=== PATIENT | female | born 1980 | race Caucasian/White ===

== ENCOUNTER 2017-09-15 16:16 | Observation (INO) | payer SELFPAY ==
[2017-09-15] MEDS ORDERED: ONDANSETRON 4 MG/2 ML VIAL ONE ×2 (17:20→23:27)
[2017-09-15] MEDS ORDERED: LIDOCAINE 2% VISCOUS 15 ML UDCUP ONE (17:48)
[2017-09-15] MEDS ORDERED: MAG HYDROX/AL HYDROX/SIMETH 30 ML UDCUP ONE (17:48)
[2017-09-15] MEDS ORDERED: HYOSCYAMINE SULFATE 0.125 MG TAB ONE (17:49)
[2017-09-15] MEDS ORDERED: ceFAZolin 2 GM/DEXTROSE 100 ML IV ONE (22:30)
--- NOTE | 2017-09-15 22:32 | EDV ---
[f rep st] EMERGENCY DEPARTMENT REPORT Patient had an IV placed. She was given 1 L of saline. She was given Zofran for nausea, morphine for pain. Laboratories show normal CBC, normal chemistry. Her lipase and LFTs are normal. HCG is negative. Ultrasound shows positive Negro sign, cholelithiasis, and suspicion for cholecystitis. HOSPITAL COURSE: Re-evaluation at 6:50 p.m. Patient is better. The patient and I discussed imaging and lab results. We discussed treatment plan, including recommendation for surgical consult. She expresses understanding and agreement. I consulted and discussed the case with Dr. Cummings, who saw the patient in the emergency department. She agrees with concern for cholecystitis , and the patient will be admitted for surgery tonight. MEDICAL DECISION MAKING: I considered peptic ulcer disease, cholelithiasis, cholecystitis. CLINICAL IMPRESSION: Cholecystitis. PLAN: Admission and surgery. /[id number]/MODL MTDD
--- NOTE | 2017-09-15 22:32 | EDV ---
[f rep st] EMERGENCY DEPARTMENT REPORT DATE OF SERVICE: 09/15/2017 CHIEF COMPLAINT: Abdominal pain. HISTORY OF PRESENT ILLNESS: The patient has right upper quadrant and epigastric abdominal pain since last night. She has had vomiting. Her symptoms are worse with eating. The pain goes through to her back. No similar symptoms previously. No chest discomfort or trouble breathing. No urinary symptoms. Pain is in the right upper quadrant and again worse with eating and worse with pushing on. No previous abdominal surgery. Mother and sisters had gallbladder problems. PAST MEDICAL HISTORY: Negative. The patient is healthy. SOCIAL HISTORY: . Nonsmoker. No alcohol. ALLERGIES: None. ADULT PHYSICAL EXAMINATION: GENERAL: Alert, pleasant, well-developed female, moderate distress. VITAL SIGNS: Stable. HEENT: Normal. NECK: Supple. HEART: Regular rate and rhythm without murmur or gallop. LUNGS: Clear. ABDOMEN: Soft with tenderness in the epigastrium and right upper quadrant. Normal bowel sounds. No masses. EXTREMITIES: Exam is normal. MUSCULOSKELETAL : Exam is normal. NEUROPSYCH: Exam is normal. EMERGENCY DEPARTMENT COURSE: Patient had an IV placed. She was given 1 L of saline. She was given Zofran for nausea, morphine for pain. Laboratories show normal CBC, normal chemistry. Her lipase and LFTs are normal. HCG is negative. Ultrasound shows positive Negro sign, cholelithiasis, and suspicion for cholecystitis. HOSPITAL COURSE: Re-evaluation at 6:50 p.m. Patient is better. The patient and I discussed imaging and lab results. We discussed treatment plan, including recommendation for surgical consult. She expresses understanding and agreement. I consulted and discussed the case with Dr. Cummings, who saw the patient in the emergency department. She agrees with concern for cholecystitis , and the patient will be admitted for surgery tonight. MEDICAL DECISION MAKING: I considered peptic ulcer disease, cholelithiasis, cholecystitis. CLINICAL IMPRESSION: Cholecystitis. PLAN: Admission and surgery. /[id number]/MODL and [id number]/MODL [facility]
--- NOTE | 2017-09-15 22:57 | GHP ---
[f rep st] HISTORY AND PHYSICAL DATE OF SERVICE: 09/15/2017 CHIEF COMPLAINT: Right upper quadrant pain. HISTORY OF PRESENT ILLNESS: This is a 37-year-old, bilingual (Azerbaijani and Nigerien) female, who presented to the emergency room several hours ago with complaints of right upper quadrant pain, nausea and vomiting. Patient states that last night, around 5 or 6 p.m., she ate a fatty meal and then developed right upper quadrant pain along with nausea and 3 episodes of vomiting. She tried to eat 2 light snacks but failed to keep them down. She denies fever. Has some slight chills. Denies chest pain, weight loss, bowel problems, or other symptoms at this time. She does have history of renal colic pain in the past, but has never had any intervention done. The patient rates the pain an average of 8/10, described as sharp and achy in the right upper quadrant and mid epigastric region. Pain does radiate to her back. She denies any lower quadrant pain. An ultrasound done in the emergency room showed cholelithiasis. CBC showed white blood count of 12.2. LFTs and lipase within normal limits. Negative test. The patient was given fluids as well as Zofran for the nausea. The HPI was conducted with the help of a waste water treatment plant operator. PAST MEDICAL HISTORY: Includes GERD. PAST SURGICAL HISTORY: Tubal ligation. FAMILY HISTORY: Noncontributory. SOCIAL HISTORY: Nonsmoker. Denies alcohol use. Denies illicit drug use. 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 Participates in [employer]. REVIEW OF SYSTEMS: Review of systems: 10 point review of systems negative except for HPI PHYSICAL EXAM: GENERAL: Pleasant, well-groomed, well-nourished female. Lying down in the bed, teary eyed due to the pain. Obese body habitus. Present with her and daughter at bedside, in mild distress. HEENT: Normocephalic, atraumatic. No gross hearing deficits. Pupils equal and round. No scleral icterus. Moist mucous membranes. RESPIRATORY: Lungs are clear to auscultation bilaterally without wheezes, rhonchi, or rales. CARDIOVASCULAR: Regular rate and rhythm. No peripheral edema. ABDOMEN: Soft. Equivocal Negro's sign. Pain to palpation over right upper quadrant as well as mid epigastric. Negative McBurney's. Negative Rovsing's. No hepatosplenomegaly. Bowel sounds are present. No surgical scars. EXTREMITIES: No peripheral edema. Pulses are intact. NEURO: Alert and oriented. PSYCH: Appropriate mood and affect. Skin: Warm and dry RESULTS REVIEWED: I personally reviewed her ultrasound on PACS and her labs printed on downtime. ASSESSMENT AND PLAN: This is a 37-year-old female who presents here with right upper quadrant pain. Ultrasound shows cholelithiasis. The risks and benefits of cholecystectomy were discussed with the patient. Given her severe pain, she would like to proceed with the procedure today. The risks include but are not limited to bleeding, infection, damage to the common bile duct, and damage to nearby organs were explained to the patient. All questions were answered to the patient's satisfaction. Will admit patient overnight for observation. /[id number]/MODL MTDD
[2017-09-15] MEDS ORDERED: BUPIVACAINE/EPI 0.5% 30 ML SDV ONE (23:10)
[2017-09-15] MEDS ORDERED: fentaNYL 100 MCG/2 ML INJ ONE (23:23)
[2017-09-15] MEDS ORDERED: REMIFENTANIL HCL 1 MG VIAL ONE (23:23)
[2017-09-15] MEDS ORDERED: PROPOFOL/EMULSION 500 MG/50 ML BOTTLE IV ONE (23:23)
[2017-09-15] MEDS ORDERED: LIDOCAINE 2% 5 ML SDV ONE (23:27)
[2017-09-15] MEDS ORDERED: DEXAMETHASONE 4 MG/ML VIAL ONE (23:27)
[2017-09-15] MEDS ORDERED: ROCURONIUM 100 MG/10 ML VIAL ONE (23:29)
[2017-09-16] MEDS ORDERED: HYDROCODONE/APAP 5/325 TAB PO PRN ×2 (01:16→01:22)
[2017-09-16] MEDS ORDERED: ONDANSETRON 4 MG/2 ML VIAL IVP PRN (01:16)
[2017-09-16] MEDS ORDERED: PHENYLEPHRINE HCL 100 MCG/ML SYR IVP PRN (01:16)
[2017-09-16] MEDS ORDERED: ACETAMINOPHEN 500 MG TAB PO PRN (01:16)
[2017-09-16] MEDS ORDERED: NALOXONE HCL 0.4 MG/ML INJ IVP PRN (01:16)
[2017-09-16] MEDS ORDERED: oxyCODONE IR 5 MG TAB PO PRN (01:16)
[2017-09-16] MEDS ORDERED: PROMETHAZINE HCL 25 MG/ML INJ IVP PRN (01:16)
[2017-09-16] MEDS ORDERED: LR 500 ML IV PRN (01:16)
[2017-09-16] MEDS ORDERED: fentaNYL 100 MCG/2 ML INJ IVP PRN (01:16)
[2017-09-16] MEDS ORDERED: ONDANSETRON DISINTEGRATING 4 MG TAB PO PRN (01:21)
[2017-09-16] MEDS ORDERED: KETOROLAC 15 MG/1 ML SDV IVP PRN (01:22)
--- NOTE | 2017-09-16 02:33 | GOP ---
[f rep st] OPERATIVE REPORT DATE OF OPERATION: 09/16/2017 SURGEON: Shauna Cummings MD ANESTHESIA: General. ANESTHESIOLOGIST: Marianne Saenz DO. PREOPERATIVE DIAGNOSIS: Cholelithiasis. POSTOPERATIVE DIAGNOSIS: Cholelithiasis. PROCEDURE PERFORMED: Laparoscopic cholecystectomy. FINDINGS: Multiple gallstones, enlarged gallbladder. SPECIMENS: Gallbladder. ESTIMATED BLOOD LOSS: 10 cc. INDICATIONS: The patient is a 37-year-old woman, who has had right upper quadrant pain. Her LFTs were normal; however, her ultrasound was suggestive of early cholecystitis with cholelithiasis. Her pain was not controlled and so we took her to the operating room. DESCRIPTION OF PROCEDURE: Patient was brought into the operating room, placed supine on the table, and general anesthesia was administered. Her abdomen was prepped and draped in the usual sterile fashion. I infiltrated all sites with 0.5% Marcaine prior to making incisions. I elevated her umbilicus. I made a small casa. I inserted the Veress needle. It passed the hanging drop test. Her abdomen insufflated easily to a pressure of 15 mmHg. I placed the 5 mm camera with a trocar at this site. There were no injuries from Veress needle placement. Under direct vision, I placed a 10 mm subxiphoid trocar and two 5 mm trocars along the right costal margin. Her gallbladder was extremely tense and elongated. I left it cephalad and laterally to expose the triangle Calot. I performed dissection to skeletonize the cystic artery and the cystic duct. The cystic duct was extremely short before came within the junction of the common bile duct. The cystic artery was quite small. The cystic artery was clipped towards the gallbladder and transected. The cystic duct was singly clipped towards the gallbladder, doubly clipped distally, and transected with scissors. The gallbladder was removed from the gallbladder fossa with electrocautery. It was placed in an EndoCatch bag and retrieved via the 10 mm trocar site. This incision had to be enlarged considerably in order to accommodate the numerous gallstones. Upon extracting the gallbladder, the bag had a breach and the gallbladder was then removed with the stones. Hemostasis was achieved on the liver bed. Clips were in satisfactory position. The ports were removed under direct vision. The abdomen allowed to desufflate.The 10 mm trocar site was closed with 0 PDS. The wound was irrigated. All skin closed with 4-0 Monocryl. Dermabond applied. She was awakened in the operating room, extubated, transferred to PACU in stable condition. /[id number]/MODL MTDD
[2017-09-16 06:06] LABS: PLATELET COUNT 341 10^3/uL (150-400)
[2017-09-16 07:41] VITALS: BP 93/63
[2017-09-16] MEDS ORDERED: FAMOTIDINE 20 MG TAB PO SCH (09:00)
--- NOTE | 2017-09-16 11:29 | SOAPPROG ---
SOAP Progress Note Assessment/Plan: Assessment: POD#1 s/p laparoscopic cholecystectomy Neuro: pain meds prn Respiratory: No active issues Cardio: Monitor for hemodynamic instability DVT prophylaxis: SCD's Dispo: Discharge today on abx and pain medication prn - total of 5 days abx S: no nausea/vomiting, ate breakfast and kept it down, walking to bathroom, mild pain O: laying in bed CTAB Regular rate and rhythm SCD's on Abdomen: soft, no tenderness throughout with light palpation, BS present, incisions dry, clean, and intact Extremities: no swelling, pulses intact 09/16/17 11:29 09/16/17 14:07 Objective: Vital Signs Temp Pulse Resp BP Pulse Ox 36.4 C 65 16 93/63 L 95 09/16/17 07:39 09/16/17 07:39 09/16/17 07:39 09/16/17 07:39 09/16/17 07:39 Laboratory Results 09/16/17 05:37 09/15/17 09/16/17 09/17/17 05:59 05:59 05:59 Output Total 175 325 Balance -175 -325 ICD10 Worksheet Patient Problems: Problems Problem Status Onset Acute calculous cholecystitis Acute
--- NOTE | 2017-09-16 12:10 | GDS ---
[f rep st] DISCHARGE SUMMARY ADMITTING DIAGNOSIS: Cholelithiasis. SECONDARY DIAGNOSIS: Gastroesophageal reflux disease. REASON FOR ADMISSION: This is a very pleasant 37-year-old [place]er-speaking female, who presented to the emergency room on 09/15/2017 for right upper quadrant pain. Ultrasound done showed cholelithiasis. She was admitted for surgical intervention, pain control, and close observation. HOSPITAL COURSE: The patient was taken to surgery on 09/15/2017 by myself, Shauna Emiliano, for a laparoscopic cholecystectomy. The operation was unremarkable aside from the fact that the cystic duct was very short. Upon extracting the gallbladder, the bag had a breach and the gallbladder was then removed with the stones. The patient was taken back in the PACU in stable condition. CONDITION: The patient will be discharged home today in stable condition. DISCHARGE MEDICATIONS: [place] 5/325 mg 1-2 tablets every 6 hours as needed for pain, Levaquin 500 mg p.o. daily for 4 days. Please refer to the EMR for further details on other home medications. DISCHARGE INSTRUCTIONS: The patient was instructed to not drive while in pain or taking pain prescription medications. She is able to take [id number] ibuprofen or Tylenol as needed. She can continue normal activity aside from no heavy lifting, pushing, or pulling greater than 15 pounds for the next 2 weeks. Incisional care: She is able to shower and no dressing is needed over the incisions. No hot tub, baths, or swimming pools for 2 weeks. She will make a followup appointment in our office in 10-14 days. She will call the office if she develops fevers, chills, worsening pain, difficulty with urination, redness or purulent drainage around the incisions. All questions were answered to the patient's satisfaction. /[id number]/MODL MTDD
[2017-09-17 10:00] LABS: PLATELET COUNT 374 10^3/uL (150-400)
== END 2017-09-16 13:30 | disposition home or self-care (01) ==
LOC: FOB 20:52 → F3E 20:52
PROVIDERS: ADMIT Surgery; ATTEND Surgery
PROC: 0FT44ZZ Resection of Gallbladder, Percutaneous Endoscopic Approach (ICD-10-PCS; principal; 2017-09-15 11:30)
DX: K80.20 Calculus of gallbladder without cholecystitis without obstruction (principal); K21.9 Gastro-esophageal reflux disease without esophagitis
CPT/HCPCS: 96374; J0690; J1100; J1885; J2270; J2405; J2704; J3010

== ENCOUNTER 2017-09-17 05:51 | Inpatient (IN) | payer OTHER ==
[2017-09-17] MEDS ORDERED: NS 1,000 ML IV ONE (06:05)
[2017-09-17] MEDS ORDERED: HYDROmorphONE/DILAUDID 2 MG/ML INJ IVP ONE ×3 (06:05→14:31)
[2017-09-17] MEDS ORDERED: PROMETHAZINE HCL 25 MG/ML INJ IVP ONE (06:06)
[2017-09-17] MEDS ORDERED: HYDROmorphONE/DILAUDID 1 MG/ML INJ ONE ×4 (06:21→14:33)
[2017-09-17 06:42] LABS: PLATELET COUNT 289 10^3/uL (150-400)
[2017-09-17 06:50] LABS: INR 1.03 (0.83-1.16); PROTIME(PATIENT) 13.7 SEC (12.0-15.0)
--- NOTE | 2017-09-17 07:02 | EDPHY ---
H & P Time Seen by Provider: 09/17/17 06:54 HPI/ROS: HPI Abdominal pain, just had gallbladder taken out. 37-year-old female by private vehicle with family. This patient had a laparoscopic cholecystectomy by Dr. Shauna Cummings yesterday. This morning she reports that she coughed and then retched felt a sudden pop in her right upper quadrant and then associated sharp stabbing pain to the right upper quadrant. No vomiting. Last bowel movement was yesterday. No bloody or melenic stool. Last meal was last night. ROS: Constitutional: No fever, no chills. No weakness. Eyes: No discharge. No changes in vision. ENT: No sore throat. No nasal congestion or rhinorrhea. Respiratory: No cough. No shortness of breath. Cardiac: No chest pain, no palpitations. Gastrointestinal: As above, no vomiting, no diarrhea. Genitourinary: No hematuria. No dysuria or increased frequency with urination. Musculoskeletal: No back pain. No neck pain. No myalgias or arthralgias. Skin: No rashes. Neurological: No headache. No focal weakness or altered sensation. Past medical history: Cholecystectomy. Social history: Here with family. Nonsmoker. No alcohol. Physical Exam: General Appearance: Alert, she appears uncomfortable but not in distress. This patient is responding to questions appropriately and in full sentences. This patient appears well-hydrated and well-nourished. Eyes: Pupils equal and round no pallor or injection. No lid edema, erythema or injection. Respiratory: There are no retractions, lungs are clear to auscultation with good air movement bilaterally. Cardiovascular: Regular rate and rhythm. No murmur. Gastrointestinal: Gross inspection of the abdomen reveals well-healing surgical incision that are clean dry and intact. No evidence of infection. Abdomen is soft with right upper quadrant and epigastric tenderness on palpation , no masses, bowel sounds normal. No focal tenderness at McBurney's point. No Negro sign. Neurological: Motor sensory function is grossly intact. Cranial nerves are normal. Gait is normal. Skin: Warm and dry, no rashes. Musculoskeletal: Neck is supple and nontender. Extremities are symmetrical. All joints range without pain or impingement. Psychiatric: No agitation. No depression. Database: EKG: Imaging: Right upper quadrant ultrasound: Trace amount of free fluid. But really an inconclusive study. Secondary to patient not being able to tolerate the pain from the probe on her right upper quadrant of her abdomen. Results were discussed with staff radiologist Sebastián Johnson. CT recommended for further evaluation. CT scan of abdomen and pelvis with IV contrast: Pneumo peritonitis which she would expect 1 day out from pseudo aneurysm, bilateral atelectasis at the lung bases, the bile duct appears normal. There is some free fluid associated with gallbladder fossa which tracks down the valery colic gutter inferiorly. Possibly a biliary leak. Consider HIDA scan. Results were discussed with staff radiologist Dr. Gus Chairez. HIDA scan: Positive for biliary leak, leakage noted extending up to the left upper quadrant. Results were discussed with staff radiologist Dr. Vega Funk. Procedures: Emergency department course: Vital signs reviewed. IV was placed. She was started on IV normal saline with 500 cc to 1 L to be given over the next hour. She was initially given 6.25 mg of IV Phenergan for nausea and 1 mg of IV hydromorphone for pain. Right upper quadrant ultrasound to be obtained. 8:40 a.m., waiting on ultrasound results. Patient complaining of pain. She will be given another 0.5 mg of IV hydromorphone. 9:15 a.m., CT scan of abdomen and pelvis with IV contrast ordered. Patient consents. 10:30 a.m., patient's pain is currently well controlled. Results of CT imaging and blood work discussed with her and family. Need for probable HIDA scan discussed. They consent. 10:40 a.m., spoke with Shauna Cummings the patient's surgeon. Case discussed in detail with her. She would like a HIDA scan obtained and then discuss further management. 2:30 p.m., patient has returned from HIDA scan. Results of HIDA scan discussed with her. Her pain is coming back. She was given another 0.5 mg of IV hydromorphone. Dr. Shauna Cummings paged. 2:45 p.m., spoke with Dr. Shauna Cummings. Results of HIDA scan discussed. Dr. Shauna Cummings will admit this patient arrange for ERCP. The patient's remaining emergency department course under my care has been uneventful. The patient was admitted in stable condition. Differential Diagnosis: The differential diagnosis on this patient includes but is not limited to postsurgical dehiscence. Intra-abdominal bleeding, pancreatitis, bowel obstruction unlikely. This represents a partial list of diagnoses considered. These considerations are based on history, physical exam, past history, reassessment and diagnostic testing. Smoking Status: Never smoked Constitutional: Initial Vital Signs Temperature (C) 36.8 C 09/17/17 05:55 Heart Rate 60 09/17/17 05:55 Respiratory Rate 18 09/17/17 05:55 Blood Pressure 97/66 L 09/17/17 05:55 O2 Sat (%) 94 09/17/17 05:55 O2 Delivery Mode Room Air Allergies/Adverse Reactions: No Known Allergies Allergy (Unverified 09/15/17 21:08) Home Medications: Medication Instructions Recorded Hydrocodone/APAP 5/325 [[place] 1 - 2 tab PO Q4H PRN #20 tab 09/16/17 5/325 (*)] Ibuprofen [Motrin (*)] 200 mg PO DAILY PRN 09/16/17 levOFLOXACIN [levAQUIN (*)] 500 mg PO DAILY10 #4 tab 09/16/17 Medical Decision Making - Diagnostics Imaging Results: Imaging Impressions Abdomen Ultrasound 09/17/17 06:58 Impression: Technically very limited examination in a patient who is one day postop cholecystectomy. As clinically directed, CT scan may be of value in further assessment. Results called and discussed with Christiano Carolina MD on 09/17/2017 at 9:[address] 09/17/17 09:06 Impression: 1. Postoperative features following yesterday's cholecystectomy, with some fluid in the gallbladder fossa and extending caudal to the right hepatic lobe and along the right paracolic gutter, which could be seromatous although a bile leak cannot be excluded. If there is further clinical concern, a nuclear medicine HIDA scan could be considered. 2. Small-volume pneumoperitoneum, likely postoperative in etiology. 3. Bibasilar infiltrates, with trace pleural effusions. 4. Mild hepatomegaly, and low-grade hepatic steatosis. Findings were discussed with Christiano Carolina MD at 10:05, on 09/17/2017. Hepatobiliary Scan Nuclear Medicine 09/17/17 13:00 Impression: 1. Bile leak with activity noted in the left upper quadrant of the abdomen. 2. No biliary obstruction. However no activity noted in the small bowel. Findings and recommendations discussed with Emergency Department physician, Christiano Carolina MD at 14:25 hour, 09/17/2017. Final report concurs with initial preliminary interpretation. - Data Points Laboratory Results: Laboratory Results 09/17/17 06:17 18 06:17 09/17/17 09/17/17 09/17/17 08:07 06:17 06:17 WBC RBC Hgb Hct MCV MCH MCHC RDW Plt Count MPV Neut % (Auto) Lymph % (Auto) [place] % (Auto) Eos % (Auto) Baso % (Auto) Nucleat RBC Rel Count Absolute Neuts (auto) Absolute Lymphs (auto) Absolute Monos (auto) Absolute Eos (auto) Absolute Basos (auto) Absolute Nucleated RBC Immature Gran % Immature Gran # PT INR APTT Sodium 141 mEq/L mEq/L (135-145) Potassium 4.1 mEq/L mEq/L (3.3-5.0) Chloride 105 mEq/L mEq/L (97-110) Carbon Dioxide 25 mEq/l mEq/l (22-31) Anion Gap 11 mEq/L mEq/L (8-16) BUN 13 mg/dL mg/dL (7-23) Creatinine 0.7 mg/dL mg/dL (0.6-1.0) Estimated GFR > 60 Glucose 121 mg/dL H mg/dL (70-100) Calcium 8.1 mg/dL L mg/dL (8.5-10.4) Total Bilirubin 0.3 mg/dL mg/dL (0.1-1.4) Conjugated Bilirubin 0.3 mg/dL mg/dL (0.0-0.5) Unconjugated Bilirubin 0.0 mg/dL mg/dL (0.0-1.1) AST 55 IU/L H IU/L (14-46) ALT 76 IU/L H IU/L (9-52) Alkaline Phosphatase 48 IU/L IU/L (38-126) Total Protein 6.2 g/dL L g/dL (6.3-8.2) Albumin 3.5 g/dL g/dL (3.5-5.0) Lipase 58 IU/L IU/L (23-300) Beta HCG, Qual NEGATIVE Urine Color YELLOW Urine Appearance MODERATELY TURBID Urine pH 5.0 (5.0-7.5) Ur Specific [place] 1.019 (1.002-1.030) Urine Protein NEGATIVE (NEGATIVE) Urine Ketones NEGATIVE (NEGATIVE) Urine Blood NEGATIVE (NEGATIVE) Urine Nitrate NEGATIVE (NEGATIVE) Urine Bilirubin NEGATIVE (NEGATIVE) Urine Urobilinogen NEGATIVE EU EU (0.2-1.0) Ur Leukocyte Esterase TRACE H (NEGATIVE) Urine RBC 1-3 /hpf /hpf (0-3) Urine WBC 10-15 /hpf H /hpf (0-3) Ur Epithelial Cells 2+ /lpf H /lpf (NONE-1+) Hyaline Casts 1-5 /lpf /lpf (0-1) Urine Mucus 3+ /lpf H /lpf (NONE-1+) Urine Glucose NEGATIVE (NEGATIVE) 09/17/17 09/17/17 06:17 06:10 WBC 9.62 10^3/uL H 10^3/uL (3.80-9.50) RBC 3.66 10^6/uL L 10^6/uL (4.18-5.33) Hgb 11.2 g/dL L g/dL (12.6-16.3) Hct 33.9 % L % (38.0-47.0) MCV 92.6 fL fL (81.5-99.8) MCH 30.6 pg pg (27.9-34.1) MCHC 33.0 g/dL g/dL (32.4-36.7) RDW 12.8 % % (11.5-15.2) Plt Count 289 10^3/uL 10^3/uL (150-400) MPV 9.8 fL fL (8.7-11.7) Neut % (Auto) 69.2 % % (39.3-74.2) Lymph % (Auto) 24.7 % % (15.0-45.0) [place] % (Auto) 5.2 % % (4.5-13.0) Eos % (Auto) 0.2 % L % (0.6-7.6) Baso % (Auto) 0.4 % % (0.3-1.7) Nucleat RBC Rel Count 0.0 % % (0.0-0.2) Absolute Neuts (auto) 6.65 10^3/uL H 10^3/uL (1.70-6.50) Absolute Lymphs (auto) 2.38 10^3/uL 10^3/uL (1.00-3.00) Absolute Monos (auto) 0.50 10^3/uL 10^3/uL (0.30-0.80) Absolute Eos (auto) 0.02 10^3/uL L 10^3/uL (0.03-0.40) Absolute Basos (auto) 0.04 10^3/uL 10^3/uL (0.02-0.10) Absolute Nucleated RBC 0.00 10^3/uL 10^3/uL (0-0.01) Immature Gran % 0.3 % % (0.0-1.1) Immature Gran # 0.03 10^3/uL 10^3/uL (0.00-0.10) PT 13.7 SEC SEC (12.0-15.0) INR 1.03 (0.83-1.16) APTT 20.0 SEC L SEC (23.0-38.0) Sodium Potassium Chloride Carbon Dioxide Anion Gap BUN Creatinine Estimated GFR Glucose Calcium Total Bilirubin Conjugated Bilirubin Unconjugated Bilirubin AST ALT Alkaline Phosphatase Total Protein Albumin Lipase Beta HCG, Qual Urine Color Urine Appearance Urine pH Ur Specific [place] Urine Protein Urine Ketones Urine Blood Urine Nitrate Urine Bilirubin Urine Urobilinogen Ur Leukocyte Esterase Urine RBC Urine WBC Ur Epithelial Cells Hyaline Casts Urine Mucus Urine Glucose Medications Given: Discontinued Medications Hydromorphone HCl (Dilaudid) 1 mg IVP EDNOW ONE Stop: 09/17/17 06:06 Last Admin: 09/17/17 06:32 Dose: 1 mg Hydromorphone HCl (Dilaudid) 0.5 mg IVP EDNOW ONE Stop: 09/17/17 08:46 Last Admin: 09/17/17 09:02 Dose: 0.5 mg Hydromorphone HCl (Dilaudid) 0.5 mg IVP EDNOW ONE Stop: 09/17/17 14:32 Last Admin: 09/17/17 14:36 Dose: 0.5 mg Sodium Chloride (Ns) 1,000 mls @ 0 mls/hr IV EDNOW ONE; Wide Open PRN Reason: Protocol Stop: 09/17/17 06:06 Last Admin: 09/17/17 06:31 Dose: 1,000 mls Ketorolac Tromethamine (Toradol) 30 mg IVP EDNOW ONE Stop: 09/17/17 08:41 Last Admin: 09/17/17 09:03 Dose: Not Given Promethazine HCl (Phenergan) 6.25 mg IVP ONCE ONE Stop: 09/17/17 06:07 Last Admin: 09/17/17 06:32 Dose: 6.25 mg Departure - Departure Disposition: [facility] Inpatient Acute Clinical Impression: Abdominal pain, Status post cholecystectomy, Bile leak Referrals: [facility] [Other] - As per Instructions
[2017-09-17] MEDS ORDERED: KETOROLAC 30 MG/1 ML SDV IVP ONE (08:40)
[2017-09-17] MEDS ORDERED: IOPAMIDOL (ISOVUE-300) 100 ML BTL ONE (09:13)
--- NOTE | 2017-09-17 12:13 | GCON ---
[f rep st] CONSULTATION REFERRING PHYSICIAN: Christiano Carolina DO REASON FOR CONSULTATION: Postoperative abdominal pain. HISTORY OF PRESENT ILLNESS: We were asked by Dr. Christiano Carolina to evaluate the patient for he r postoperative abdominal pain. The patient presented to the emergency department on 09/15/2017, wit h abdominal pain. She was found to have cholelithiasis on her ultrasound and due to her exquisite pa in, she was taken to the operating room and had a lap cholecystectomy on 09/15/2017. She was dischar ged in 09/16/2017. Her operative course was unremarkable, aside from the fact that upon extracting h er gallbladder, there was a breach of the bag and the gallbladder then had to be removed with the sto moses. Today, she had coughed and then retched. Subsequent to that, she felt a pop sensation and has had pa in in the right lower sternal region since then. She denies any change in her bowels. She has been able to have bowel movements and urinate. She has been afebrile. REVIEW OF SYSTEMS: As per HPI. A complete 10-point review of systems was obtained and is negative, except for what is dictated. PAST MEDICAL/SURGICAL HISTORY: 1. Cholecystectomy on 09/15/2017. 2. Tubal ligation. 3. History of GERD. SOCIAL HISTORY: She is a nonsmoker. Denies any alcohol intake. She is and has 3 children. OUTPATIENT MEDICATIONS: Reviewed in [employer]. They are listed as Levaquin for which she is to take for total 4 days, ibuprofen p.r.n., and Weston p.r.n. ALLERGIES: No known drug allergies. FAMILY HISTORY: Reviewed and noncontributory. PHYSICAL EXAMINATION: VITAL SIGNS: BP of 97/66, heart rate of 60, respirations 18, O2 saturation 94 % on room air, temp of 98.2 degrees Fahrenheit. GENERAL: She is a pleasant female appearing mildly distressed. HEENT: She is normocephalic, atraumatic. Eyes are without scleral icterus. Mucous mem branes moist. HEART: Regular rate and rhythm. LUNGS: Clear. There is no increased work of breath ing. GI: She has bowel sounds present. She has mild tenderness on palpation through the abdomen. She is exquisitely tender in the right lateral region in the region of her epigastrium, and there is an area of induration of 5 cm x 2 cm. This follows near the site of her trocar incision. : No Fo monique present. SKIN: Warm and dry. PSYCH: Normal mood and affect for given situation. NEURO: No f ocal deficits detected. LABORATORY/IMAGING: CBC with WBC 9.62, hemoglobin 11.2, hematocrit 33.9, platelet count of 289. BMP with sodium 141, potassium 4.1, chloride 105, CO2 25, BUN 13, creatinine 0.7, glucose 121. AST 55, ALT 76. Urine shows trace leukocyte esterase with 2+ epithelial cells. Abdominal ultrasound reviewed each from 09/17/2017. This shows technically very limited examination due to patient tenderness with the ultrasound probe. There is trace free fluid in the gallbladder fo ssa. Inflammatory changes seen in the region that could either be inflamed bowel or inflamed mesente monica fat. 09/17/[address] shows kidneys without hydronephrosis. There is a "column of José" and a ti ny cortical scar along the right kidney. The GI tract shows normal-appearing stomach, large bowel, a nd appendix. There is some fluid-filled loops of mildly prominent small bowel centrally, which may r eflect a mild postoperative ileus. Retroperitoneum shows no adenopathy. The mesentery, omentum, per itoneum show small volume pneumoperitoneum in the patient had surgery yesterday. There is some free fluid extending from the gallbladder fossa and along the undersurface of the right hepatic loop and a small amount along the pericolic gutter. This could be seromatous or related to bile. The abdomina l wall musculature shows subcutaneous adipose anterior to the right rectus abdominis musculature with numerous dots of air and some postoperative inflammatory periumbilical thickening likely secondary t o trocar insertion. I spoke with Dr. Christiano Carolina about patient's care. IMPRESSION/PLAN: The patient is a 37-year-old female who had recent cholelithiasis, status post chol ecystectomy, postop day 2. She was discharged yesterday and presents today with severe pain after a coughing and then retching today. Postobstructive abdominal pain. Likely this is from the air and inflammation that was noted in the r ectus abdominis muscle when the abdominal wall was evaluated in the CT is that is where she is most t prudencio on examination today; however, we do agree that it is prudent to proceed to a HIDA scan given h er recent surgery and need to rule out a biliary leak as etiology of her current symptoms. More ti mmendations will follow further testing. /[id number]/MODL
[2017-09-17] MEDS ORDERED: ACETAMINOPHEN 325 MG TAB PO PRN (15:07)
[2017-09-17] MEDS ORDERED: LORazepam 2 MG/ML INJ IVP PRN (15:07)
[2017-09-17] MEDS: HYDROmorphONE/DILAUDID 1 MG/ML INJ IVP PRN ×2 (16:13→20:12)
[2017-09-17] MEDS ORDERED: POTASSIUM Cl (KCl) 20 MEQ in 1/2 NS 1,000 ML IV SCH (18:30)
--- NOTE | 2017-09-17 18:41 | GCON ---
[f rep st] CONSULTATION GI INPATIENT CONSULTATION DATE OF CONSULTATION: 09/17/2017 REFERRING PHYSICIAN: Shauna Cummings MD I was kindly requested to see Blanche by Dr. Shauna Cummings in consultation for a chief complaint of abdominal pain. She is a 37-year-old female who underwent laparoscopic cholecystectomy yesterday. This morning, when she coughed, she felt a sudden "pop" in her right upper quadrant, and then began to have significant pain in the right upper quadrant. She denies vomiting. No fever. She presented to the emergency department. There, a CT scan of the abdomen and pelvis was suggestive of a bile leak. HIDA scan was performed and confirmed this. PAST MEDICAL HISTORY: 1. As above. 2. Otherwise, noncontributory. INPATIENT MEDICATIONS: Include Levaquin orally and pain medications. ALLERGIES: No known drug allergies. SOCIAL HISTORY: She denies alcohol use. FAMILY HISTORY: Negative for similar pain. REVIEW OF SYSTEMS: Positive pertinent review of systems as per my HPI. Otherwise, complete review of systems is negative. PHYSICAL EXAM: CONSTITUTIONAL: Nontoxic, sleepy patient. SKIN: Warm, dry. EYES: Pupils equal, round, reactive to light and accommodation. EARS, NOSE, MOUTH, AND THROAT: Oropharynx without masses, moist mucosa. CARDIOVASCULAR: Normal S2, normal PMI. RESPIRATORY: Lungs clear to auscultation and percussion anteriorly. GASTROINTESTINAL: Abdomen with mild diffuse tenderness throughout. No rebound. NEUROLOGIC: Cranial nerves grossly intact, grossly nonfocal. PSYCHIATRIC: Orientation, insight appropriate. MUSCULOSKELETAL: Strength grossly normal throughout, normal station. LABORATORIES: Include the above. Ultrasound was suboptimal. Urinalysis shows 10-15 white blood cells per high-power field. Normal coags. Hematocrit stable at 33.9%. AST 55 with an ALT of 76. Normal bilirubin. Beta HCG negative. Lipase negative. ASSESSMENT: Abdominal pain. Almost certainly due to a bile leak. PLAN: 1. ERCP with placement of a biliary stent. 2. Will begin IV fluids. 3. I will change her p.o. Levaquin to IV. Thank you for allowing me to help in the management of this patient. Copy requested to: PCP /[id number]/MODL MTDD
[2017-09-17] MEDS: LR 1,000 ML IV SCH (18:49)
[2017-09-17] MEDS ORDERED: HYDROCODONE/APAP 5/325 TAB PO PRN (22:46)
[2017-09-17] MEDS: HYDROmorphone HCL/NS 0.5 MG/ML SYR IVP PRN (23:19)
[2017-09-18] MEDS: HYDROmorphone HCL/NS 0.5 MG/ML SYR IVP PRN ×8 (01:28→23:31)
[2017-09-18] MEDS: HYDROmorphONE/DILAUDID 1 MG/ML INJ IVP PRN (03:54)
[2017-09-18] MEDS: LR 1,000 ML IV SCH ×3 (03:55→23:59)
[2017-09-18 05:00] LABS: PLATELET COUNT 301 10^3/uL (150-400)
[2017-09-18] MEDS ORDERED: IOTHALAMATE MEG (CONRAY) 50 ML VIAL IV ONE (08:17)
[2017-09-18] MEDS ORDERED: GLUCAGON HCL 1 MG VIAL ONE (08:17)
[2017-09-18] MEDS ORDERED: LACTULOSE 20 GM/30 ML UDCUP PO PRN (08:33)
[2017-09-18] MEDS ORDERED: MAGNESIUM HYDROXIDE 30 ML UDCUP PO PRN (08:33)
[2017-09-18] MEDS ORDERED: BISACODYL 10 MG SUPP PR PRN (08:33)
[2017-09-18] MEDS ORDERED: POLYETHYLENE GLYCOL 3350 17 GM PKT PO PRN (08:33)
[2017-09-18] MEDS ORDERED: LR 1,000 ML IV ONE (08:34)
--- NOTE | 2017-09-18 08:38 | PDANEPAE ---
ANE History of Present Illness bile leak s/p lap marcelo 09/17/17 ANE Past Medical History - Cardiovascular History Hx Hypertension: No Hx Arrhythmias: No Hx Chest Pain: No Hx Coronary Artery / Peripheral Vascular Disease: No Hx CHF / Valvular Disease: No Hx Palpitations: No - Pulmonary History Hx COPD: No Hx Asthma/Reactive Airway Disease: No Hx Recent Upper Respiratory Infection: No Hx Oxygen in Use at Home: No Hx Sleep Apnea: No Sleep Apnea Screening Result - Last Documented: Negative - Endocrine History Hx Diabetes: No Obesity: mild ANE Review of Systems Review of systems is: negative Review of Systems: - Exercise capacity Exercise capacity: >=4 METS ANE Patient History - Allergies Allergies/Adverse Reactions: No Known Allergies Allergy (Unverified 09/15/17 21:08) - Home Medications Home medications: home medication list seen and reviewed Home Medications: Ibuprofen [Motrin (*)] 200 mg PO DAILY PRN 09/16/17 [Last Taken Unknown] - NPO status NPO Since - Liquids (Date): 09/17/17 NPO Since - Liquids (Time): 02:00 NPO Since - Solids (Date): 09/17/17 NPO Since - Solids (Time): 02:00 - Anes Hx Anes Hx: no prior problems - Smoking Hx Smoking Status: Never smoked ANE Labs/Vital Signs - Labs Result Diagrams: 09/18/17 04:15 09/18/17 04:15 - Vital Signs Blood Pressure: 121/84 Heart Rate: 94 Respiratory Rate: 12 O2 Sat (%): 96 Height: 152.4 cm Weight: 70.76 kg ANE Physical Exam - Airway Neck exam: FROM Mallampati Score: Class 1 Mouth exam: normal dental/mouth exam - Pulmonary Pulmonary: no respiratory distress - Cardiovascular Cardiovascular: regular rate and rhythym - ASA Status ASA Status: II ANE Anesthesia Plan Anesthesia Plan: general endotracheal anesthesia
[2017-09-18] MEDS: levOFLOXACIN 500 MG/DEXTROSE 100 ML IV SCH (08:42)
[2017-09-18] MEDS ORDERED: PROPOFOL 200 MG/20 ML VIAL ONE (08:59)
[2017-09-18] MEDS ORDERED: fentaNYL 100 MCG/2 ML INJ ONE ×2 (08:59→09:23)
[2017-09-18] MEDS ORDERED: ROCURONIUM 50 MG/5 ML VIAL ONE (09:00)
[2017-09-18] MEDS ORDERED: DEXAMETHASONE 4 MG/ML VIAL ONE (09:01)
[2017-09-18] MEDS ORDERED: ONDANSETRON 4 MG/2 ML VIAL ONE (09:01)
[2017-09-18] MEDS ORDERED: SUGAMMADEX SODIUM 200 MG/2 ML VIAL IVP ONE (09:01)
[2017-09-18] MEDS ORDERED: LIDOCAINE 2% 5 ML SDV ONE (09:01)
[2017-09-18] MEDS ORDERED: MIDAZOLAM 2 MG/2 ML VIAL ONE (09:03)
--- NOTE | 2017-09-18 09:31 | POSTANESTH ---
Post Anesthetic Evaluation Cardiovascular Status: Normal, Stable Respiratory Status: Normal, Stable Level of Consciousness/Mental Status: Can Participate in Eval, Mildly Sleepy, Arousable Pain Control: Adequate, Prn Tx Ordered Nausea/Vomiting Control: Adequate, Prn Tx Ordered Complications Possibly Related to Anesthesia: None Noted
[2017-09-18] MEDS ORDERED: LABETALOL HCL 5 MG/ML 20 ML MDV IVP PRN (09:32)
[2017-09-18] MEDS ORDERED: HYDROmorphONE/DILAUDID 1 MG/ML INJ IVP PRN (09:32)
[2017-09-18] MEDS ORDERED: HYDROCODONE/APAP 5/325 TAB PO PRN ×2 (09:32→23:25)
[2017-09-18] MEDS ORDERED: PROMETHAZINE HCL 25 MG/ML INJ IVP PRN (09:32)
[2017-09-18] MEDS ORDERED: ALBUTEROL 3 ML DEYVIAL IH PRN (09:32)
[2017-09-18] MEDS ORDERED: ACETAMINOPHEN 500 MG TAB PO PRN (09:32)
[2017-09-18] MEDS ORDERED: fentaNYL 100 MCG/2 ML INJ IVP PRN (09:32)
[2017-09-18] MEDS ORDERED: NALOXONE HCL 0.4 MG/ML INJ IVP PRN (09:32)
[2017-09-18] MEDS ORDERED: ONDANSETRON 4 MG/2 ML VIAL IVP PRN (09:32)
[2017-09-18] MEDS ORDERED: oxyCODONE IR 5 MG TAB PO PRN (09:32)
[2017-09-18] MEDS ORDERED: ESMOLOL HCL 100 MG/10 ML VIAL IV ONE ×2 (09:42)
[2017-09-18] MEDS ORDERED: INDOMETHACIN 50 MG SUPP PR ONE ×2 (10:34→10:40)
[2017-09-18] MEDS: SENNOSIDES/DOCUSATE SODIUM TAB PO SCH ×2 (12:09→21:36)
--- NOTE | 2017-09-18 14:07 | ASMTCMCOM ---
CM Note CM Note Notes: Pt re-admitted with abdominal pain after being discharged 2 days ago s/p a lap marcelo. She is now s/p an ERCP with biliary stenting attempted. She is currently on IV levaquin. She is Maori speaking and lives with her in [place]. Cigar Roller was present during interviews. Pt has Care insurance and is not eligible for home care services. CM will follow for any other d/c needs. Date Signed: 09/18/2017 02:06 PM Electronically Signed By:DANNY Washington
--- NOTE | 2017-09-18 15:16 | SOAPPROG ---
SOAP Progress Note Assessment/Plan: Assessment: Plan: Objective: Vital Signs Temp Pulse Resp BP Pulse Ox 36.3 C 70 12 113/74 97 09/18/17 14:20 09/18/17 14:20 09/18/17 14:20 09/18/17 14:20 09/18/17 14:20 Laboratory Results 09/18/17 04:15 09/18/17 04:15 09/17/17 09/18/17 09/19/17 05:59 05:59 05:59 Intake Total 2116 400 Output Total 500 Balance 2116 -100 PT 13.7 SEC (12.0-15.0) 09/17/17 06:10 INR 1.03 (0.83-1.16) 09/17/17 06:10 ICD10 Worksheet Patient Problems: Problems Problem Status Onset Abdominal pain Acute Bile leak Acute Status post cholecystectomy Acute Acute calculous cholecystitis Acute
--- NOTE | 2017-09-18 15:46 | SOAPPROG ---
AURELIO Progress Note Assessment/Plan: Assessment: This is a 37 year old female status post cholecystectomy on 09/15/2017. She returned to the emergency department on 09/17/2017 for postoperative abdominal pain. She was admitted and a HIDA scan was performed on 09/17/2017. Thought there was a leak. ERCP attempted. I reviewed HIDA and CT and am not sure there is a leak. We will repeat the HIDA scan tomorrow morning with delays. If the HIDA scan is normal, she will be discharged home tomorrow. If the HIDA scan is abnormal, we will go ahead with an ERCP. S: Patient is still in pain although she is feeling better. Patient is ambulating. O: Patient is ambulating with walker Regular rhythm No increased work of breathing Abdomen soft, non-tender, bowel sounds present, incision site is clean and dry with no signs of infection. Plan: 09/18/17 15:45 09/18/17 20:15 Objective: Vital Signs Temp Pulse Resp BP Pulse Ox 36.3 C 70 12 113/74 97 09/18/17 14:20 09/18/17 14:20 09/18/17 14:20 09/18/17 14:20 09/18/17 14:20 Laboratory Results 09/18/17 04:15 09/18/17 04:15 09/17/17 09/18/17 09/19/17 05:59 05:59 05:59 Intake Total 2116 400 Output Total 500 Balance 2116 -100 PT 13.7 SEC (12.0-15.0) 09/17/17 06:10 INR 1.03 (0.83-1.16) 09/17/17 06:10 ICD10 Worksheet Patient Problems: Problems Problem Status Onset Abdominal pain Acute Bile leak Acute Status post cholecystectomy Acute Acute calculous cholecystitis Acute
--- NOTE | 2017-09-18 17:15 | PDMN ---
Medical Necessity Medical necessity: C/M review: Patient meets INPT criteria under [facility] Gastro[facility]ology GRG (Other post procedural complications and disorders of digestive system): Acute bile leak with activity noted in the left upper quadrant of the abdomen - 09/17/2017 HIDA scan inconclusive abdominal pain requiring 09/18/2017 ERCP, planned 09/19/2017 repeat HIDA scan, ongoing NPO, IV LR 100 ml/hr infusion, IV Levaquin daily, frequent doses IV Dilaudid, comorbid laparoscopic cholecystectomy. anticipates > 2 MN LOS for ongoing med nec for eval and TX of above.
[2017-09-18] MEDS ORDERED: HYDROmorphone HCL/NS 0.5 MG/ML SYR IVP PRN (23:30)
[2017-09-18] MEDS ORDERED: KETOROLAC 15 MG/1 ML SDV IVP ONE (23:30)
[2017-09-19] MEDS: HYDROmorphone HCL/NS 0.5 MG/ML SYR IV PRN ×4 (02:09→08:42)
[2017-09-19] MEDS: ONDANSETRON 4 MG/2 ML VIAL IVP PRN (05:01)
[2017-09-19 05:21] LABS: PLATELET COUNT 338 10^3/uL (150-400)
[2017-09-19] MEDS: levOFLOXACIN 500 MG/DEXTROSE 100 ML IV SCH (10:41)
[2017-09-19] MEDS: SENNOSIDES/DOCUSATE SODIUM TAB PO SCH ×2 (10:42→20:31)
--- NOTE | 2017-09-19 15:56 | PDANEPAE ---
ANE History of Present Illness ERCP for bile leak s/p lap marcelo ANE Past Medical History - Cardiovascular History Hx Hypertension: No Hx Arrhythmias: No Hx Chest Pain: No Hx Coronary Artery / Peripheral Vascular Disease: No Hx CHF / Valvular Disease: No Hx Palpitations: No - Pulmonary History Hx COPD: No Hx Asthma/Reactive Airway Disease: No Hx Recent Upper Respiratory Infection: No Hx Oxygen in Use at Home: No Hx Sleep Apnea: No Sleep Apnea Screening Result - Last Documented: Negative - Endocrine History Hx Diabetes: No Obesity: mild ANE Review of Systems Review of Systems: - Exercise capacity Exercise capacity: >=4 METS ANE Patient History - Allergies Allergies/Adverse Reactions: No Known Allergies Allergy (Unverified 09/15/17 21:08) - Home Medications Home medications: home medication list seen and reviewed Home Medications: Ibuprofen [Motrin (*)] 200 mg PO DAILY PRN 09/16/17 [Last Taken Unknown] - NPO status NPO Status: no food or drink >8 hours NPO Since - Liquids (Date): 09/19/17 NPO Since - Liquids (Time): 00:00 NPO Since - Solids (Date): 09/19/17 NPO Since - Solids (Time): 00:00 - Smoking Hx Smoking Status: Never smoked - Alcohol Use Alcohol Use: None - Family Anes Hx Family Anes Hx: none ANE Labs/Vital Signs - Labs Result Diagrams: 09/19/17 04:42 09/18/17 04:15 - Vital Signs Blood Pressure: 111/75 Heart Rate: 86 Respiratory Rate: 20 O2 Sat (%): 88 Height: 152.4 cm Weight: 70.76 kg ANE Physical Exam - Airway Neck exam: FROM Mallampati Score: Class 2 - Pulmonary Pulmonary: no respiratory distress - Cardiovascular Cardiovascular: regular rate and rhythym - ASA Status ASA Status: I ANE Anesthesia Plan Anesthesia Plan: general endotracheal anesthesia
[2017-09-19] MEDS ORDERED: IOTHALAMATE MEG (CONRAY) 50 ML VIAL IV ONE (16:01)
[2017-09-19] MEDS ORDERED: GLUCAGON HCL 1 MG VIAL ONE (16:01)
[2017-09-19] MEDS ORDERED: REMIFENTANIL HCL 1 MG VIAL ONE (16:02)
[2017-09-19] MEDS ORDERED: PROPOFOL/EMULSION 500 MG/50 ML BOTTLE IV ONE (16:02)
[2017-09-19] MEDS ORDERED: ONDANSETRON 4 MG/2 ML VIAL ONE (16:03)
[2017-09-19] MEDS ORDERED: DEXAMETHASONE 4 MG/ML VIAL ONE (16:03)
[2017-09-19] MEDS ORDERED: LIDOCAINE 2% 100 MG/5 ML SYR ONE (16:03)
[2017-09-19] MEDS ORDERED: INDOMETHACIN 50 MG SUPP PR ONE (16:11)
--- NOTE | 2017-09-19 16:23 | SOAPPROG ---
AURELIO Progress Note Assessment/Plan: Assessment: 37-year-old female with bile leak status post lap choly/LFTs are moderately elevated/abdomen soft with slight right upper quadrant tenderness/ low-grade temperature HEENT nonicteric/chest clear/cor regular rhythm/abdomen soft/extremities benign without edema Plan: ERCP and stent today if possible 09/19/17 16:21 Objective: Vital Signs Temp Pulse Resp BP Pulse Ox 36.9 C 86 20 111/75 88 L 09/19/17 14:52 09/19/17 15:56 09/19/17 15:56 09/19/17 15:56 09/19/17 15:56 Laboratory Results 09/19/17 04:42 09/18/17 09/19/17 09/20/17 05:59 05:59 05:59 Intake Total 1257 Output Total 4 Balance 1253 PT 13.7 SEC (12.0-15.0) 09/17/17 06:10 INR 1.03 (0.83-1.16) 09/17/17 06:10 ICD10 Worksheet Patient Problems: Problems Problem Status Onset Abdominal pain Acute Bile leak Acute Status post cholecystectomy Acute Acute calculous cholecystitis Acute
[2017-09-19] MEDS ORDERED: oxyCODONE IR 5 MG TAB PO PRN (16:52)
[2017-09-19] MEDS ORDERED: ONDANSETRON 4 MG/2 ML VIAL IVP PRN (16:52)
[2017-09-19] MEDS ORDERED: MEPERIDINE 25 MG/0.5 ML AMP IVP PRN (16:52)
[2017-09-19] MEDS ORDERED: LR 500 ML IV PRN (16:52)
[2017-09-19] MEDS ORDERED: NALOXONE HCL 0.4 MG/ML INJ IVP PRN (16:52)
[2017-09-19] MEDS ORDERED: DEXAMETHASONE 4 MG/ML VIAL IVP PRN (16:52)
[2017-09-19] MEDS ORDERED: PROMETHAZINE HCL 25 MG/ML INJ IVP PRN (16:52)
[2017-09-19] MEDS ORDERED: HYDROmorphONE/DILAUDID 1 MG/ML INJ IVP PRN (16:52)
[2017-09-19] MEDS ORDERED: ALBUTEROL 3 ML DEYVIAL IH PRN (16:52)
[2017-09-19] MEDS ORDERED: PHENYLEPHRINE HCL 100 MCG/ML SYR IVP PRN (16:52)
[2017-09-19] MEDS ORDERED: HYDROCODONE/APAP 5/325 TAB PO PRN (16:52)
[2017-09-19] MEDS ORDERED: fentaNYL 100 MCG/2 ML INJ ONE (17:11)
[2017-09-19] MEDS: fentaNYL 100 MCG/2 ML INJ IVP PRN ×2 (17:13→17:28)
--- NOTE | 2017-09-19 21:13 | SOAPPROG ---
AURELIO Progress Note Assessment/Plan: Assessment: Plan: 09/19/17 21:11 GI note Procedure note done in [facility] system but for some reason did not make it to intergy. S/p ERCP. Covered metal stent placed. Leak near cystic duct? Keep NPO till tomorrow. Needs repeat ERCP in 6 weeks. Objective: Vital Signs Temp Pulse Resp BP Pulse Ox 36.7 C 88 16 120/82 H 91 L 09/19/17 20:00 09/19/17 20:00 09/19/17 20:00 09/19/17 20:00 09/19/17 20:00 Laboratory Results 09/19/17 04:42 09/18/17 09/19/17 09/20/17 05:59 05:59 05:59 Intake Total 1257 1750 Output Total 4 10 Balance 1253 1740 PT 13.7 SEC (12.0-15.0) 09/17/17 06:10 INR 1.03 (0.83-1.16) 09/17/17 06:10 ICD10 Worksheet Patient Problems: Problems Problem Status Onset Acute calculous cholecystitis Acute Abdominal pain Acute Status post cholecystectomy Acute Bile leak Acute
[2017-09-19] MEDS: LR 1,000 ML IV SCH (22:55)
[2017-09-20] MEDS: ONDANSETRON 4 MG/2 ML VIAL IVP PRN (02:02)
[2017-09-20] MEDS ORDERED: PROMETHAZINE HCL 25 MG/ML INJ IV PRN (04:26)
--- NOTE | 2017-09-20 08:41 | SOAPPROG ---
AURELIO Progress Note Assessment/Plan: Assessment: Plan: 09/19/17 21:11 GI note Procedure note done in [facility] system but for some reason did not make it to intergy. S/p ERCP. Covered metal stent placed. Leak near cystic duct? Keep NPO till tomorrow. Needs repeat ERCP in 6 weeks. 09/20/17 08:38 A/P 1. Bile leak- s/p ERCP with stenting. Clinically doing well. Will start diet. Needs repeat ERCP in 6-8 weeks. GI will sign off. Thank you for the consultation ! Subjective: cc: Follow up on bile leak No complaints of abdominal pain. Mild complaints of nausea. Objective: Vital Signs Temp Pulse Resp BP Pulse Ox 37.4 C 88 20 122/82 H 95 09/20/17 08:00 09/20/17 08:00 09/20/17 08:00 09/20/17 08:00 09/20/17 08:00 Laboratory Results 09/19/17 04:42 09/19/17 09/20/17 09/21/17 05:59 05:59 05:59 Intake Total 1257 2197 Output Total 4 10 Balance 1253 2187 PT 13.7 SEC (12.0-15.0) 09/17/17 06:10 INR 1.03 (0.83-1.16) 09/17/17 06:10 Physical Exam - Physical Exam General Appearance: alert, no apparent distress EENT: TM abnormal (R), No scleral icterus (R), No scleral icterus (L) Respiratory: lungs clear, normal breath sounds Cardiac/Chest: regular rate, rhythm, No diastolic murmur, No systolic murmur Abdomen: normal bowel sounds, non-tender, soft, No distended, No guarding, No rebound Skin: normal color, warm/dry Neuro/Psych: no motor/sensory deficits, alert, normal mood/affect, oriented x 3 , No abnormal radio 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
[2017-09-20] MEDS: LR 1,000 ML IV SCH (09:04)
[2017-09-20] MEDS: ONDANSETRON DISINTEGRATING 4 MG TAB PO PRN ×2 (09:04→15:16)
[2017-09-20] MEDS: levOFLOXACIN 500 MG/DEXTROSE 100 ML IV SCH (09:04)
[2017-09-20] MEDS: SENNOSIDES/DOCUSATE SODIUM TAB PO SCH ×2 (09:25→20:40)
--- NOTE | 2017-09-20 11:47 | ASMTCMCOM ---
CM Note CM Note Notes: CM met with patient, was present. CM asked patient if there are any needs she feels needs to be addressed at home when she is ready for discharge, patient denied needs. Venecia Herrera confirmed patient has no needs to address in Portuguese. CM to follow. Current D/C plan: D/C 09/20 or 09/21, independent with family to home. Date Signed: 09/20/2017 11:46 AM Electronically Signed By:Juanita Lopez
--- NOTE | 2017-09-20 12:26 | SOAPPROG ---
AURELIO Progress Note Assessment/Plan: Assessment: 37-year-old female with bile leak status post lap choly/LFTs are moderately elevated/abdomen soft with slight right upper quadrant tenderness/ low-grade temperature HEENT nonicteric/chest clear/cor regular rhythm/abdomen soft/extremities benign without edema Plan: ERCP and stent today if possible 09/19/17 16:21 09/20/17 12:25 comfortable/afebrile / vital signs stable/ nonicteric/ labs pending/ will advance diet if labs okay/ home in the a.m. if eating okay 09/20/17 15:01 Objective: Vital Signs Temp Pulse Resp BP Pulse Ox 36.8 C 83 16 114/64 94 09/20/17 11:36 09/20/17 11:36 09/20/17 11:36 09/20/17 11:36 09/20/17 11:36 Laboratory Results 09/19/17 04:42 09/19/17 09/20/17 09/21/17 05:59 05:59 05:59 Intake Total 1257 2197 Output Total 4 10 Balance 1253 2187 PT 13.7 SEC (12.0-15.0) 09/17/17 06:10 INR 1.03 (0.83-1.16) 09/17/17 06:10 ICD10 Worksheet Patient Problems: Problems Problem Status Onset Abdominal pain Acute Bile leak Acute Status post cholecystectomy Acute Acute calculous cholecystitis Acute
[2017-09-20] MEDS ORDERED: IBUPROFEN 200 MG TAB PO PRN (13:49)
[2017-09-21 04:22] VITALS: BP 114/75
[2017-09-21 05:03] LABS: PLATELET COUNT 381 10^3/uL (150-400)
--- NOTE | 2017-09-21 09:06 | SOAPPROG ---
AURELIO Progress Note Assessment/Plan: Assessment: This is a 37 year old female status post cholecystectomy on 09/15/2017. She returned to the emergency department on 09/17/2017 for postoperative abdominal pain. She was admitted and a HIDA scan was performed on 09/17/2017. Thought there was a leak. Stent placed on Thursday. Much improved DC home has antibiotics to finish at home RTC 10 days S: Much improved. Tolerating diet O: Walking well independently Regular rhythm No increased work of breathing CTAB Abdomen soft, non-tender, bowel sounds present, incision site is clean and dry with no signs of infection. Plan: 09/18/17 15:45 09/18/17 20:15 09/21/17 09:05 Objective: Vital Signs Temp Pulse Resp BP Pulse Ox 36.7 C 79 16 114/75 93 09/21/17 04:00 09/21/17 04:00 09/21/17 04:00 09/21/17 04:00 09/21/17 04:00 Laboratory Results 09/21/17 04:18 09/21/17 04:18 09/20/17 09/21/17 09/22/17 05:59 05:59 05:59 Intake Total 2197 350 Output Total 10 Balance 2187 350 PT 13.7 SEC (12.0-15.0) 09/17/17 06:10 INR 1.03 (0.83-1.16) 09/17/17 06:10 ICD10 Worksheet Patient Problems: Problems Problem Status Onset Abdominal pain Acute Bile leak Acute Status post cholecystectomy Acute Acute calculous cholecystitis Acute
[2017-09-21] MEDS: SENNOSIDES/DOCUSATE SODIUM TAB PO SCH (09:23)
--- NOTE | 2017-09-22 10:33 | GDS ---
[f rep st] DISCHARGE SUMMARY ADMITTING DIAGNOSIS: Biliary leak. SECONDARY DIAGNOSIS: Gastroesophageal reflux disease. REASON FOR ADMISSION: This is a very pleasant 37-year-old female who returned to the emergency department on 09/17/2017 for postoperative abdominal pain. She was admitted and a HIDA scan was performed on 09/17/2017. Stent was placed on Thursday and her symptoms are now improved. Patient was initially taken to surgery on 09/15/17 for laparoscopic cholecystectomy after having right upper quadrant pain. US showed cholelithiasis. HOSPITAL COURSE: The patient was taken for a HIDA scan on 09/17/2017 and a stent was placed on 09/19/2017. CONDITION: The patient will be discharged home in stable condition. DISCHARGE MEDICATIONS: Patient will resume antibiotics. Please refer to the EMR for further details on other home medications. DISCHARGE INSTRUCTIONS: The patient will return to the clinic in 10 days for followup. The patient can continue normal activity aside from no heavy lifting , pushing or pulling greater than 15 pounds for the next 2 weeks. Continue to monitor incision sites, but she is able to shower. Avoid hot tubs, baths, or swimming pools for the next 2 weeks. She will call our office in the meantime if she develops fevers, chills, worsening pain, difficulty with urination, redness or purulent drainage around the incisions. /[id number]/MODL MTDD
== END 2017-09-21 10:11 | disposition home or self-care (01) | DRG 395 ==
LOC: INTOOBSV 14:37 → F3E 15:15 → OBSVTOIN 09-18 16:25
PROVIDERS: ADMIT Surgery; ATTEND Surgery
PROC: 0FJD8ZZ Inspection of Pancreatic Duct, Via Natural or Artificial Opening Endoscopic (ICD-10-PCS; 2017-09-18)
PROC: BF101ZZ Fluoroscopy of Bile Ducts using Low Osmolar Contrast (ICD-10-PCS; 2017-09-18)
PROC: 0FC98ZZ Extirpation of Matter from Common Bile Duct, Via Natural or Artificial Opening Endoscopic (ICD-10-PCS; principal; 2017-09-19 14:00)
PROC: 0F798DZ Dilation of Common Bile Duct with Intraluminal Device, Via Natural or Artificial Opening Endoscopic (ICD-10-PCS; principal; 2017-09-19 14:00)
PROC: BF101ZZ Fluoroscopy of Bile Ducts using Low Osmolar Contrast (ICD-10-PCS; principal; 2017-09-19 14:00)
DX: K91.89 Other postprocedural complications and disorders of digestive system (principal); E86.9 Volume depletion, unspecified; K21.9 Gastro-esophageal reflux disease without esophagitis
CPT/HCPCS: 96374; A9537; C1874; G0378; J1100; J1170; J1610; J1885; J1956; J2001; J2060; J2250; J2405; J2550; J2704; J3010; Q9961; Q9967